=== PATIENT | male | born 1990 | race Two or more races ===

== ENCOUNTER 2021-11-15 15:27 | Outpatient (REF) | payer SELFPAY ==
[2021-11-15 17:00] LABS: COVID-19 Test Negative (Negative)
== END 2021-11-15 15:28 | disposition home or self-care (01) ==
LOC: HO.LAB 15:27
PROVIDERS: Visit Provider Internal Medicine
DX: Z20.822 Contact with and (suspected) exposure to COVID-19 (principal)
CPT/HCPCS: 87635; C9803